=== PATIENT | male | born 1995 | race Two or more races ===

== ENCOUNTER 2024-08-31 08:11 | Emergency (ER) | payer BC, MEDICAID ==
[~2024-08-31] VITALS: Ht 190.5 cm; Wt 170.2 kg
[2024-08-31 08:26] VITALS: BP 138/95; PULSE 92; RESP 18; TEMP 97.7; O2SAT 97
--- NOTE | 2024-08-31 08:59 | ED.PDOC ---
Musculoskeletal HPI Comments 29-year-old male presents with a chief complaint of right foot pain x3 weeks. Patient states like he has been working extended hours at his job, roughly 16 hours. Pain started to the lateral aspect of his right foot he complains to the medial aspect of his foot as well. Patient is able to ambulate but states that it is painful to do so, reports a shooting pain that is rated as moderate. Patient states that he has been seen in the clinic ([facility]) and was given an anti-inflammatory shot and did help. Patient also had an x-ray that same day and was informed he had a heel spur Patient states that he also follows up with a meal attendant at 12 pm today Denies any injury. Denies previous injury or surgery to the affected foot Denies any numbness tingling Denies fevers chills Denies erythema, edema, restrictions in his range of motion Chief Complaint: Lower Extremity Time Seen by MD: 08:27 Primary Care Provider: TRICE Levine Notes: Nurses Notes, Medications, Allergies Allergies: Coded Allergies: NO KNOWN ALLERGIES (Unverified , 08/31/24) Home Meds Active Scripts Prednisone (Prednisone) 20 Mg Tab, 60 MG PO DAILY for 5 Days, #15 TAB 0 Refills Prov:BASSEM SALINAS NP 08/31/24 Tramadol HCl (Tramadol HCl) 50 Mg Tab, 50 MG PO Q8HP PRN for 3 Days, #9 TAB 0 Refills Prov:BASSEM SALINAS SYSTEMS DEVELOPMENT MANAGER 08/31/24 Information Source: Patient Mode of Arrival: Ambulatory Location: Right Extremity Location: Foot Timing: Weeks Prehospital treatment: None Severity: Moderate Able to Move Extremity: Yes Bear Weight: Limited Pain: Moderate Hand Dominance: Right Mechanism: Spontaneous Circumstances: Work Related Onset of Symptoms: Spontaneous Symptoms: Swelling, Pain DVT Risk Factors: NONE Last Tetanus: UTD History of: Gout Associated signs and symptoms: Foot pain Past Medical History PAST MEDICAL HISTORY: Gout Surgical History: Denies all surgeries Family History Family History: Reviewed,noncontributory to illness Social History Smoker: Non-Smoker Alcohol: Denies ETOH Use Drugs: Denies Drug Use Lives In: Home Constitutional: denies: chills, diaphoresis, fatigue, fever, malaise, sweats, weakness, others EENTM: denies: blurred vision, double vision, ear bleeding, ear discharge, ear drainage, ear pain, ear ringing, eye pain, eye redness, hearing loss, mouth pain, mouth swelling, nasal discharge, nose bleeding, nose congestion, nose pain, photophobia, tearing, throat pain, throat swelling, voice changes, others Respiratory: denies: cough, hemoptysis, orthopnea, SOB at rest, shortness of breath, SOB with excertion, stridor, wheezing, others Cardiovascular: denies: chest pain, dizzy spells, diaphoresis, Dyspnea on exertion, edema, irregular heart beat, left arm pain, lightheadedness, palpitations, PND, syncope, others Gastrointestinal: denies: abdomen distended, abdominal pain, blood streaked bowels, constipated, diarrhea, dysphagia, difficulty swallowing, hematemesis, melena, nausea, poor appetite, poor fluid intake, rectal bleeding, rectal pain, vomiting, others Genitourinary: denies: burning, dysuria, flank pain, frequency, hematuria, incontinence, penile discharge, penile sore, pain, testicle pain, testicle swelling, urgency, others Musculoskeletal: reports: muscle pain; denies: back pain, gout, joint pain, joint swelling, muscle stiffness, neck pain, others Integumetry: denies: bruises, change in color, change in hair/nails, dryness, laceration, lesions, lumps, rash, wounds, others Allergic/Immunocompromised: denies: Difficulty Healing, Frequent Infections, Hives, Itching, others Hematologic/Lymphatic: denies: anemia, blood clots, easy bleeding, easy bruising, swollen glands, others Endocrine: denies: excessive hunger, excessive sweating, excessive thirst, excessive urination, flushing, intolerance to cold, intolerance to heat, unexplained weight gain, unexplained weight loss, others Psychiatric: denies: anxiety, bipolar disorder, depression, hopeless, panic di sorder, schizophrenia, sleepless, suicidal, others All Other Systems: Reviewed and Negative ( PER HPI) Physical Exam General Appearance: No Apparent Distress, Normal HEENT: Normal ENT Inspection, Pharynx Normal, TMs Normal Neck: Full Range of Motion, Non-Tender, Normal, Normal Inspection Respiratory: Chest Non-Tender, Lungs Clear, No Accessory Muscle Use, No Respiratory Distress, Normal Breath Sounds Cardiovascular: No Edema, No JVD, No Murmur, No Gallop, Normal Peripheral Pulses, Regular Rate/Rhythm Breast Exam: Deferred Gastrointestinal: No Organomegaly, Non Tender, No Pulsatile Mass, Normal Bowel Sounds, Soft Genitalia: Deferred Pelvic: Deferred Rectal: Deferred Extremities: No calf tenderness, Normal capillary refill, Normal inspection, Normal range of motion, Non-tender, No pedal edema Musculoskeletal : Location: Right Extremity Location: Foot (NO GROSS ABNORMAILITY ON INSPECTION , NO STS, NO PAIN TO LATERAL MEDIAL MALLEOUS, NO PAIN TO ACHILLES, NO PAIN TO METATARSALS, DORSI FLEXION PLANTAR FLEXION INTACT, NEUROVASCULAR SENSATION INTACT, CAP REFILL LESS THAN 3) Apperance: Swelling, Tenderness: Moderate Neurologic: Alert, mud car worker II-XII nml as Tested, No Motor Deficits, Normal Affect, Normal Mood, No Sensory Deficits Cerebellar Function: Normal Reflexes: Normal Skin: Dry, Normal Color, Warm Lymphatic: No Adenopathy Was a procedure done? Was a procedure done?: No Differential Diagnosis EXT Differential Diagnosis: Sprain, Other (Plantar fasciitis, neuritis) X-Ray, Labs, Meds, VS Vital Signs Date Time Temp Pulse Resp B/P (MAP) Pulse Ox O2 Delivery O2 Flow Rate FiO2 08/31/24 08:26 97.7 92 18 138/95 (109) 97 97.7 X-Ray, Labs, Meds, VS Comment 29-year-old male presents with a chief complaint of right foot pain x3 weeks. Patient arrives alert and oriented, ABC's intact, afebrile, vital signs stable, saturating well in room air Patient is stable for discharge at this time. No signs of arterial nerve damage. Neurovascular sensation intact. Able to ambulate without assistive devices. VSS External notes reviewed. Test results and diagnostic imaging interpreted. All diagnostic findings, discharge care, education and instructions provided Follow-up with PCP in 2 to 3 days. Also advised to follow up with a meal attendant. Patient verbalized understanding and agreed to treatment plan Vital signs stable, afebrile, no acute distress noted Patient ambulatory with strong steady gait Advised to return precautions for any new or worsening symptoms, return to ER immediately for re-evaluation Patient is aware that the purpose of this visit was for an acute medical emergency requiring emergent stabilization. Chronic conditions, including malignancies have not been ruled out. Patient is instructed to follow up with PCP as directed and discharge instructions for continued care and workup. If unable to arrange follow-up, patient is to return to the emergency department for reassessment. Patient (parent or legal guardian if applicable) was given verbal and written discharge instructions and acknowledges understanding. Additional MDM Review of External, Non-ED records: External records reviewed. Discussion with independent historian (EMS, family) history obtained from the patient/parents (if applicable) at bedside Chronic conditions affecting care: None Social determinants of health affecting care: None Consideration of admission (observation or admission): I considered escalation of care to admission for this patient, however given the reassuring workup, the patient is safe for outpatient management. Discussion with the Radiology: No Tests considered but not performed: Prescription medication considered but not given: Time of 1ST Reevaluation: 08:57 Reevaluation 1ST: Unchanged Patient Education/Counseling: Diagnosis, Treatment, Prognosis Family Education/Counseling: No Family Present Departure 1 Departure Time of Disposition: 09:03 Impression: Primary Impression: Right foot pain Additional Impression: Heel spur Qualified Codes: M77.31 - Calcaneal spur, right foot Disposition: HOME / SELF CARE / HOMELESS Condition: Stable e-Prescriptions Prednisone (Prednisone) 20 Mg Tab 60 MG PO DAILY for 5 Days, #15 TAB 0 Refills Prov: BASSEM SALINAS NP 08/31/24 Tramadol HCl (Tramadol HCl) 50 Mg Tab 50 MG PO Q8HP PRN for 3 Days, #9 TAB 0 Refills Prov: BASSEM SALINAS SYSTEMS DEVELOPMENT MANAGER 08/31/24 Discharged With: Self Critical Care Note Critical Care Time?: No Stability Stability form required: No I personally scribed for BASSEM SALINAS NP ([email or web address]) on 08/31/24 at 08:59. Electronically submitted by Antoine Toscano ([email or web address]). BASSEM SALINAS NP Aug 31, 2024 08:59
[2024-08-31] MEDS ORDERED: TRAM-626 PO (09:02)
[2024-08-31] MEDS ORDERED: PRED20TA2 PO (09:02)
== END 2024-08-31 10:17 | disposition home or self-care (01) ==
LOC: ER 08:11
DX: M77.31 Calcaneal spur, right foot (principal); M79.671 Pain in right foot